=== PATIENT | female | born 1950 ===

== ENCOUNTER 2023-12-26 15:49 | Outpatient (REF) | payer MEDICARE, SELFPAY | END 2023-12-26 15:50 | disposition home or self-care (01) | LOC: HO.HOSX 15:49 | PROVIDERS: Visit Provider Orthopaedic Surgery | DX: Z13.89 Encounter for screening for other disorder (principal) ==

== ENCOUNTER 2024-02-05 10:44 | Outpatient (REF) | payer MEDICARE, SELFPAY | END 2024-02-05 10:45 | disposition home or self-care (01) | LOC: HO.HOSX 10:44 | PROVIDERS: Visit Provider Orthopaedic Surgery | DX: Z13.89 Encounter for screening for other disorder (principal) ==